=== PATIENT | female | born 2000 | race Two or more races ===

== ENCOUNTER 2023-02-16 18:46 | Emergency (ER) | payer OTHER ==
[~2023-02-16] VITALS: Ht 152.4 cm; Wt 54.0 kg
[2023-02-16] MEDS ORDERED: FOLIC ACID0.8 M1 (19:06)
[2023-02-16] MEDS ORDERED: PRENATAL + DHA1 EAC1 (19:06)
[2023-02-16 20:07] LABS: HEMATOCRIT 35.2 % (36.0-45.00); HEMOGLOBIN 12.1 g/dL (12.0-15.00); MEAN CELL VOLUME 86.9 fL (80.00-100.00); MEAN CORPUSCULAR HEMOGLOBIN 29.9 pg (27.00-32.0); MEAN CORPUSCULAR HGB CONC 34.5 g/dl (32.0-36.0); PLATELET COUNT 268 K/uL (150-450); RED BLOOD COUNT 4.06 M/uL (4.00-6.00); RED CELL DISTRIBUTION WIDTH 13.1 % (11.5-14.5)
[2023-02-16 20:27] LABS: INR 1.01; PROTHROMBIN TIME 10.6 SECONDS (9.0-11.5)
[2023-02-16 20:33] LABS: CALCIUM 9.1 mg/dL (8.5-10.1); CREATININE SERUM 0.48 mg/dL (0.55-1.02); GFR 161.72; POTASSIUM 3.16 mEq/L (3.5-5.1)
[2023-02-16 21:15] LABS: URINE APPEARANCE Clear; URINE BILIRRUBIN Negative (NEGATIVE); URINE BLOOD Large; URINE COLOR Yellow; URINE GLUCOSE Negative (NEGATIVE); URINE LEUKOCYTE Negative; URINE NITRATE Negative; URINE PROTEIN Negative (NEGATIVE)
[2023-02-16 21:19] LABS: URINE BACTERIA 2455.5 uL (0.0-1933); URINE EPITHELIAL CELLS 27.1 uL (0.0-38.8); URINE RBC 9.7 uL (0.0-20.8); URINE WBC 20.5 uL (0.0-23.2)
[2023-02-17 08:42] LABS: HEMATOCRIT 35.3 % (36.0-45.00); MEAN CELL VOLUME 87.1 fL (80.00-100.00); MEAN CORPUSCULAR HEMOGLOBIN 29.6 pg (27.00-32.0); PLATELET COUNT 257 K/uL (150-450); RED BLOOD COUNT 4.05 M/uL (4.00-6.00); RED CELL DISTRIBUTION WIDTH 13.4 % (11.5-14.5)
== END 2023-02-17 15:02 | disposition home or self-care (01) ==
LOC: ER 18:46
PROVIDERS: General Practice; Student in an Organized Health Care Education/Training Program
DX: N93.9 Abnormal uterine and vaginal bleeding, unspecified (principal); Z88.8 Allergy status to other drugs, medicaments and biological substances